=== PATIENT | male | born 1945 | race Caucasian/White ===

== ENCOUNTER 2025-02-11 18:16 | Inpatient (IN) | payer MEDICARE, OTHER ==
[~2025-02-11] VITALS: Ht 165.1 cm; Wt 65.8 kg
[2025-02-11 19:01] LABS: BASOPHILS # (AUTO) 0.1 K/uL (0.0-0.2); BASOPHILS % (AUTO) 0.7 % (0.0-2.0); EOSINOPHILS # (AUTO) 0.2 K/uL (0.0-0.7); EOSINOPHILS % (AUTO) 3.3 % (0.0-6.0); HEMATOCRIT 42 % (39-51); HEMOGLOBIN 14.4 g/dL (13.5-17.5); LYMPHOCYTES # (AUTO) 2.3 K/uL (0.8-4.8); LYMPHOCYTES % (AUTO) 30.5 % (20.0-44.0); MEAN CORPUSCULAR HEMOGLOBIN 30 PG (26.0-33.0); MEAN CORPUSCULAR HGB CONC 34 g/dl (31.0-36.0); MEAN CORPUSCULAR VOLUME 87 fL (80-96); MONOCYTES # (AUTO) 0.5 K/uL (0.1-1.30); NEUTROPHILS # (AUTO) 4.3 K/uL (1.8-8.9); NEUTROPHILS % (AUTO) 58.5 % (43.0-81.0); PLATELET COUNT (AUTO) 220 K/uL (150-450); RED BLOOD CELL COUNT(AUTO) 4.85 MIL/uL (4.5-6.0); RED CELL DISTRIBUTION WIDTH 14.8 % (11.5-15.0); WHITE BLOOD COUNT (AUTO) 7.4 K/uL (4.3-11.0)
[2025-02-11 19:08] LABS: CALCIUM, SERUM 9.2 mg/dL (8.5-10.1); CARBON DIOXIDE 21 mmol/L (21-32); CHLORIDE 105 mmol/L (98-107); CREATININE 0.9 mg/dL (0.6-1.3); GLUCOSE 109 mg/dL (74-106); POTASSIUM 4.5 mmol/L (3.5-5.1); SODIUM SERUM 141 mmol/L (136-145); UREA NITROGEN, BLOOD 18 mg/dL (7-18)
[2025-02-11 19:14] LABS: ACETAMINOPHEN <10 ug/ml (10-30); ALANINE AMINOTRANSFERASE 14 U/L (12-78); ALBUMIN 3.8 g/dL (3.4-5.0); ALCOHOL, BLOOD < 3 mg/dL (0-10); ALKALINE PHOSPHATASE 64 U/L (46-116); ASPARTATE AMINOTRANSFERASE 13 U/L (15-37); BILIRUBIN,DIRECT 0.2 mg/dL (0.0-0.2); BILIRUBIN,TOTAL 0.6 mg/dL (0.2-1.0); TOTAL PROTEIN, SERUM 6.9 g/dL (6.4-8.2)
[2025-02-11] MEDS ORDERED: METF-442 PO (19:21)
[2025-02-11] MEDS ORDERED: LORA10TA7 PO (19:21)
[2025-02-11] MEDS ORDERED: BISA10SU11 RC (19:21)
[2025-02-11] MEDS ORDERED: CHOL100062 PO (19:21)
[2025-02-11] MEDS ORDERED: MULT-213 PO (19:21)
[2025-02-11] MEDS ORDERED: ACET325T53 PO (19:21)
[2025-02-11] MEDS ORDERED: MAGN400O6 PO (19:21)
[2025-02-11] MEDS ORDERED: DOCU100C36 PO (19:21)
[2025-02-11] MEDS ORDERED: ATOR10TA PO (19:21)
[2025-02-11] MEDS ORDERED: MELA3TAB41 PO (19:21)
[2025-02-11] MEDS ORDERED: EMPA25TA PO (19:21)
[2025-02-11] MEDS ORDERED: ACET-73 PO (19:21)
[2025-02-11] MEDS ORDERED: FAMO-131 PO (19:21)
[2025-02-11] MEDS ORDERED: NITR0.4T48 SL (19:21)
[2025-02-11] MEDS ORDERED: GLUC1KIT IM (19:21)
[2025-02-11] MEDS ORDERED: ASPI-1420 PO (19:21)
[2025-02-11] MEDS ORDERED: KETO120S5 TP (19:21)
[2025-02-11] MEDS ORDERED: MAGN400T52 PO (19:21)
[2025-02-11] MEDS ORDERED: SENN-261 PO (19:21)
[2025-02-11] MEDS ORDERED: SODI15OR5 PO (19:21)
[2025-02-11] MEDS ORDERED: NA P133E RC (19:21)
[2025-02-11 20:08] LABS: APPEARANCE,URINE CLEAR (CLEAR); BILIRUBIN,URINE NEGATIVE (NEGATIVE); BLOOD, URINE NEGATIVE Ery/uL (NEGATIVE); COLOR,URINE YELLOW (YELLOW); KETONES,URINE 1+ mg/dL (NEGATIVE); LEUKOCYTE ESTERASE ,URINE NEGATIVE (NEGATIVE); NITRITE, URINE NEGATIVE (NEGATIVE); PROTEIN,URINE NEGATIVE (NEGATIVE); UGLUCOSE 3+ mg/dL (NEGATIVE); UROBILINOGEN,URINE 0.2 EU/dL (0.2)
[2025-02-11 20:14] LABS: ADD URINE CULTURE NO; BACTERIA,URINE Rare /HPF (None Seen); RBC,URINE 0-2 /HPF (0-2); WBC,URINE NONE SEEN /HPF (0-3)
[2025-02-11 20:15] LABS: SQUAMOUS EPITHELIAL CELL,UR Few /HPF (None Seen)
[2025-02-11 20:22] LABS: AMPHETAMINE, URINE NEGATIVE (NEGATIVE); BARBITURATE, URINE NEGATIVE (NEGATIVE); BENZODIAZEPINE, URINE NEGATIVE (NEGATIVE); CANNABINOID, URINE NEGATIVE (NEGATIVE); COCCAINE, URINE NEGATIVE (NEGATIVE); OPIATE, URINE NEGATIVE (NEGATIVE); PHENCYCLIDINE SCREEN,URINE NEGATIVE (NEGATIVE)
[2025-02-11 22:30] VITALS: BP 146/82; TEMP 97.5; O2SAT 100
[2025-02-11] MEDS ORDERED: MAGNESIUM HYDROXIDE 30 ML UDC PO PRN ×2 (22:30→23:30)
[2025-02-11] MEDS ORDERED: MAG HYDROX/AL HYDROX/SIMETH 30 ML UDC PO PRN (22:30)
[2025-02-11] MEDS ORDERED: ACETAMINOPHEN 325 MG TABLET PO PRN ×2 (22:30→23:30)
[2025-02-11] MEDS ORDERED: TEMAZEPAM 7.5 MG CAPSULE PO PRN (22:30)
[2025-02-11] MEDS ORDERED: LORAZEPAM 0.5 MG TABLET PO PRN (22:30)
[2025-02-11] MEDS: BLOOD SUGAR DIAGNOSTIC 1 EACH STRIP IN ONE (23:12)
[2025-02-11] MEDS ORDERED: NITROGLYCERIN 0.4 MG/TAB BOTTLE SL PRN (23:30)
[2025-02-11] MEDS ORDERED: ACETAMINOPHEN ES 500 MG TABLET PO PRN (23:30)
[2025-02-11] MEDS ORDERED: NA PHOS,M-B/NA PHOS,DI-BA 1 EA ENEMA RC PRN (23:30)
[2025-02-11] MEDS ORDERED: BISACODYL SUPP (10 MG) 10 MG/SUPP.RECT SUPP.RECT RC PRN (23:30)
[2025-02-11] MEDS ORDERED: GLUCAGON,HUMAN RECOMBINANT 1 MG/VIAL VIAL SQ PRN (23:45)
[2025-02-12 08:00] VITALS: BP 127/92; TEMP 98; O2SAT 96
[2025-02-12 08:19] LABS: ALBUMIN 4.1 g/dL (3.4-5.0); BILIRUBIN,TOTAL 1.1 mg/dL (0.2-1.0); CALCIUM, SERUM 8.8 mg/dL (8.5-10.1); CREATININE 0.8 mg/dL (0.6-1.3); POTASSIUM 4.3 mmol/L (3.5-5.1); TOTAL PROTEIN, SERUM 7.3 g/dL (6.4-8.2)
[2025-02-12] MEDS: DOCUSATE SODIUM 100 MG CAPSULE PO SCH (09:40)
[2025-02-12] MEDS: METFORMIN 500 MG TABLET PO SCH (09:40)
[2025-02-12] MEDS: CHOLECALCIFEROL 1,000 UNIT TABLET (VIT D3) PO SCH (09:40)
[2025-02-12] MEDS: MULTIVIT W/MINERALS 1 TAB TABLET PO SCH (09:41)
[2025-02-12] MEDS: MAGNESIUM OXIDE 400 MG TABLET PO SCH (09:41)
[2025-02-12] MEDS: FAMOTIDINE (20 MG) 20 MG TABLET PO SCH (09:41)
[2025-02-12] MEDS: ASPIRIN EC 81 MG TABLET.DR PO SCH (09:41)
[2025-02-12] MEDS: EMPAGLIFLOZIN 25 MG TABLET PO SCH (09:42)
[2025-02-12] MEDS: KETOCONAZOLE SHAMPOO 120 ML BOTTLE TP SCH (09:43)
[2025-02-12 10:17] LABS: CHOLESTEROL 106 mg/dL (<200); TRIGLYCERIDES 86 mg/dL (30-150)
[2025-02-12 10:18] LABS: HDL CHOLESTEROL 68 mg/dL (40-60); LDL 30 mg/dL (0-99)
[2025-02-12 15:59] VITALS: BP 136/79; TEMP 97.7; O2SAT 96
[2025-02-12 20:06] VITALS: BP 120/67; TEMP 97.8; O2SAT 97
[2025-02-12] MEDS: ATORVASTATIN 10 MG TABLET PO SCH (21:18)
[2025-02-12] MEDS: TEMAZEPAM 7.5 MG CAPSULE PO PRN (21:18)
[2025-02-12] MEDS: SENNOSIDES 8.6 MG TABLET PO SCH (21:18)
[2025-02-13 08:00] VITALS: BP 143/87; TEMP 97.7; O2SAT 98
[2025-02-13] MEDS: DIVALPROEX SODIUM 125 MG CAP.SPRINK PO SCH (11:31)
[2025-02-13 16:00] VITALS: BP 121/62; TEMP 97.5; O2SAT 98
[2025-02-13 20:00] VITALS: BP 120/73; TEMP 98.1; O2SAT 97
[2025-02-14 08:00] VITALS: BP 163/62; TEMP 97.7; O2SAT 96
[2025-02-14 16:00] VITALS: BP 164/88; TEMP 98.6; O2SAT 96
[2025-02-14 21:00] VITALS: BP 166/88; TEMP 98.5; O2SAT 96
[2025-02-14] MEDS: CLONIDINE HCL 0.1 MG TABLET PO PRN (22:31)
[2025-02-14 23:50] VITALS: BP 144/80; TEMP 98.2; O2SAT 98
[2025-02-15 08:00] VITALS: BP 148/87; TEMP 97.7; O2SAT 98
[2025-02-15] MEDS: AMLODIPINE BESYLATE 2.5 MG TABLET PO SCH (10:16)
[2025-02-15] MEDS: LORAZEPAM 0.5 MG TABLET PO PRN (10:35)
[2025-02-15 16:00] VITALS: BP 96/62; TEMP 97.3; O2SAT 97
[2025-02-15 17:03] VITALS: BP 133/76
[2025-02-15 20:13] VITALS: BP 134/82; TEMP 97.9; O2SAT 97
[2025-02-16 08:00] VITALS: BP 158/75; TEMP 97.9; O2SAT 97
[2025-02-16] MEDS: LORATADINE 10 MG TABLET PO PRN (09:43)
[2025-02-16 15:25] VITALS: BP 122/77; TEMP 98.8; O2SAT 100
[2025-02-16 20:47] VITALS: BP 144/74; TEMP 98.2; O2SAT 96
[2025-02-17 08:00] VITALS: BP 131/80; TEMP 98.1; O2SAT 97
[2025-02-17 16:00] VITALS: BP 117/72; TEMP 98.6; O2SAT 95
[2025-02-17 20:31] VITALS: BP 149/83; TEMP 98.4; O2SAT 96
[2025-02-17] MEDS: DIVALPROEX SODIUM 125 MG TABLET.DR PO SCH (21:19)
[2025-02-18 08:00] VITALS: BP 137/68; TEMP 97.8; O2SAT 97
[2025-02-18] MEDS: DIVALPROEX SODIUM 125 MG CAP.SPRINK PO SCH (12:13)
[2025-02-18 16:03] VITALS: BP 130/73; TEMP 97.7; O2SAT 98
[2025-02-18 20:17] VITALS: BP 125/76; TEMP 97.7; O2SAT 98
[2025-02-19 08:00] VITALS: BP 128/67; TEMP 97.8; O2SAT 97
[2025-02-19 16:00] VITALS: BP 137/93; TEMP 97.9; O2SAT 99
[2025-02-19 19:57] VITALS: BP 146/78; TEMP 97.7; O2SAT 97
[2025-02-20 08:00] VITALS: BP 118/67; TEMP 97.8; O2SAT 97
[2025-02-20 16:00] VITALS: BP 132/74; TEMP 97.8; O2SAT 95
[2025-02-20 19:51] VITALS: BP 129/76; TEMP 98.2; O2SAT 97
[2025-02-21 08:00] VITALS: BP 146/81; TEMP 97.5; O2SAT 99
[2025-02-21 16:00] VITALS: BP 117/74; TEMP 97.7; O2SAT 97
[2025-02-21 20:00] VITALS: BP 112/64; TEMP 98.2; O2SAT 97
[2025-02-22 08:00] VITALS: BP 133/80; TEMP 97.8; O2SAT 96
[2025-02-22 16:00] VITALS: BP 171/83; TEMP 97.5; O2SAT 94
[2025-02-22 21:17] VITALS: BP 114/83; TEMP 98.2; O2SAT 96
[2025-02-23 08:00] VITALS: BP 120/76; TEMP 97.6; O2SAT 98
[2025-02-23 16:03] VITALS: BP 118/69; TEMP 98; O2SAT 99
[2025-02-23 20:17] VITALS: BP 142/89; TEMP 98.3; O2SAT 97
[2025-02-24 08:00] VITALS: BP 160/81; TEMP 98.6; O2SAT 98
[2025-02-24 12:19] LABS: CALCIUM, SERUM 9.2 mg/dL (8.5-10.1); CARBON DIOXIDE 24 mmol/L (21-32); CHLORIDE 104 mmol/L (98-107); CREATININE 0.9 mg/dL (0.6-1.3); GLUCOSE 102 mg/dL (74-106); POTASSIUM 5.7 mmol/L (3.5-5.1); SODIUM SERUM 138 mmol/L (136-145); UREA NITROGEN, BLOOD 17 mg/dL (7-18)
[2025-02-24 12:26] LABS: VALPROIC ACID 40 ug/mL (50-100)
[2025-02-24 16:00] VITALS: BP 119/82; TEMP 98.1; O2SAT 98
[2025-02-24 20:12] VITALS: BP 165/90; TEMP 98.3; O2SAT 99
[2025-02-25 08:08] VITALS: BP 170/83; TEMP 97.8; O2SAT 97
[2025-02-25 13:59] VITALS: BP 180/86
== END 2025-02-25 14:55 | DRG 885 ==
LOC: ER 18:16 → GPS 21:43
PROVIDERS: ADMIT Psychiatry & Neurology Psychosomatic Medicine; ATTEND Nurse Practitioner Family
DX: F39 Unspecified mood [affective] disorder (principal); F03.93 Unspecified dementia, unspecified severity, with mood disturbance; E11.9 Type 2 diabetes mellitus without complications; E78.5 Hyperlipidemia, unspecified; Z79.84 Long term (current) use of oral hypoglycemic drugs; K21.9 Gastro-esophageal reflux disease without esophagitis; Z20.822 Contact with and (suspected) exposure to COVID-19; Z73.6 Limitation of activities due to disability; F03.90 Unspecified dementia, unspecified severity, without behavioral disturbance, psychotic disturbance, mood disturbance, and anxiety; R53.1 Weakness; I10 Essential (primary) hypertension
CPT/HCPCS: 36415; 70450-TC; 80048-TC; 80053-TC; 80061-TC; 80076-TC; 80164-TC; 81001; 82962-TC; 85025-TC; 87081-TC; 97110-TC; 97112-TC; 97116-TC; 97530-TC; G0480